=== PATIENT | female | born 1995 | race Caucasian/White ===

== ENCOUNTER 2018-07-07 18:08 | Emergency (ER) | payer OTHER ==
[~2018-07-07] VITALS: Ht 172.7 cm; Wt 90.7 kg
[2018-07-07 18:55] LABS: *URINE HCG, QUAL NEGATIVE (NEGATIVE)
--- NOTE | 2018-07-07 19:13 | NUR ---
SHIFT REPORT GIVEN TO AUBREE LEDESMA.
--- NOTE | 2018-07-07 19:15 | NUR ---
Patient discharged to home in stable conditon. Written and verbal after care instructions given. Patient verbalizes understanding of instructions. Pt left ER in stable gait with friend. All belongings w pt. VSS. NAD noted.
[2018-07-07 19:16] VITALS: BP 117/79
== END 2018-07-07 19:17 | disposition home or self-care (01) ==
LOC: ER 18:09
DX: M54.5 Low back pain (principal); R20.2 Paresthesia of skin
CPT/HCPCS: 84703; A4663

== ENCOUNTER 2019-01-01 21:17 | Emergency (ER) | payer OTHER ==
[~2019-01-01] VITALS: Ht 172.7 cm; Wt 97.5 kg
[2019-01-01 22:15] VITALS: BP 121/92
--- NOTE | 2019-01-01 22:15 | NUR ---
Patient discharged to home in stable conditon. Written and verbal after care instructions given. Patient verbalizes understanding of instructions. Patient ambulated with stable gait. CMS intact
== END 2019-01-01 22:17 | disposition home or self-care (01) ==
LOC: ER 21:21
DX: M79.641 Pain in right hand (principal); R22.31 Localized swelling, mass and lump, right upper limb; W51.XXXA Accidental striking against or bumped into by another person, initial encounter; Y93.89 Activity, other specified; Y92.89 Other specified places as the place of occurrence of the external cause; Y99.8 Other external cause status
CPT/HCPCS: 73130; A4663